=== PATIENT | female | born 1955 | race Caucasian/White ===

== ENCOUNTER → 2024-02-21 10:18 | Outpatient (REF) | payer MEDICARE, OTHER, SELFPAY | LOC: HWRCS 10:18 | PROVIDERS: ATTENDING PHYSICIAN Internal Medicine Cardiovascular Disease; FAMILY PHYSICIAN Family Medicine | DX: R06.09 Other forms of dyspnea (principal) | CPT/HCPCS: 93306 ==

== ENCOUNTER → 2024-05-20 10:38 | Outpatient (REF) | payer MEDICARE, OTHER, SELFPAY | LOC: EMG 10:38 | PROVIDERS: ATTENDING PHYSICIAN Podiatrist Foot & Ankle Surgery; FAMILY PHYSICIAN Family Medicine | DX: G57.51 Tarsal tunnel syndrome, right lower limb (principal); G57.52 Tarsal tunnel syndrome, left lower limb; R20.0 Anesthesia of skin | CPT/HCPCS: 95886; 95910 ==